=== PATIENT | male | born 1945 | race Caucasian/White ===

== ENCOUNTER → 2017-08-07 | Outpatient (CLI) | payer OTHER ==
--- NOTE | 2017-08-07 10:50 | DIAGNOSTIC IMAGING REPORT ---
CHEST 2 VIEWS ROUTINE CLINICAL HISTORY: Pacemaker. Pre-MRI evaluation COMPARISON STUDY: No previous studies for comparison. FINDINGS: There is a dual-chamber left subclavian central venous pacemaker. No abandoned leads are visualized. The heart is normal in size. There is no failure. There is no focal pulmonary consolidation. There are no pleural effusions.[ IMPRESSION: No active disease in the chest. Electronically signed by: Costa Kelley M.D. 08/07/2017 10:48 AM Dictated Date/Time: 08/07/2017 10:48 AM
--- NOTE | 2017-08-07 12:42 | DIAGNOSTIC IMAGING REPORT ---
LEFT SHOULDER MRI HISTORY: Left shoulder pain. TECHNIQUE: Multiplanar multisequence MRI of the left shoulder was performed without contrast. COMPARISON STUDY: None. FINDINGS: AC joint: Moderate AC joint arthrosis demonstrated by cartilage space narrowing and marginal osteophytes. Small amount of fluid at the AC joint. Rotator cuff: Complete full-thickness tear of the mid to distal supraspinatus tendon which demonstrates up to 13 mm of retraction. There is also complete full-thickness tear and retraction of the anterior fibers of the infraspinatus tendon. There is high-grade partial tear of the distal subscapularis tendon and near complete full-thickness tear of the teres minor tendons. Labrum: The labrum is diffusely abnormal consistent with a diffuse tear/maceration. Biceps tendon: High-grade split tear of the proximal long head of the biceps tendon. Bones: No fracture or dislocation. Marginal osteophytes at the glenohumeral joint. There is narrowing of the subacromial space due to the superior subluxation of the humeral head from the rotator cuff injury. Cartilage: Near full-thickness cartilage loss at the superior aspect of the glenohumeral joint. There is also 50% cartilage space narrowing at the superior aspect of the humeral head. Miscellaneous: Scattered metallic artifact within the shoulder consistent with old postoperative changes. Small to moderate joint effusion most pronounced within the subcoracoid bursa. Near complete fatty atrophy of the teres minor and infraspinatus muscles. There is mild to moderate fatty atrophy of the supraspinatus muscle. IMPRESSION: 1. Extensive rotator cuff injury/tear as described above . 2. Diffuse labral tear/maceration. 3. High-grade split tear of the proximal long head of the biceps tendon. 4. Wpfwh-nn-qlrnzktj joint effusion most pronounced within the subcoracoid bursa. 5. Degenerative changes as described above. Electronically signed by: Jesse Ba M.D. 08/07/2017 12:40 PM Dictated Date/Time: 08/07/2017 12:27 PM
== END | disposition home or self-care (01) ==
LOC: C.MRI 10:22
PROVIDERS: ATTEND Orthopaedic Surgery Sports Medicine
DX: M75.102 Unspecified rotator cuff tear or rupture of left shoulder, not specified as traumatic (principal); S43.432A Superior glenoid labrum lesion of left shoulder, initial encounter; X58.XXXA Exposure to other specified factors, initial encounter; M19.012 Primary osteoarthritis, left shoulder

== ENCOUNTER → 2017-08-29 | Day surgery (SDC) | payer OTHER ==
[2017-08-20 08:26] VITALS: BMI 26.0
[2017-08-21 11:32] VITALS: BMI 27.0
--- NOTE | 2017-08-21 12:17 | PAT Medication Instructions ---
Service Date Aug 21, 2017. Current Home Medication List Celecoxib (CeleBREX), 200 MG PO QAM Diphenhydramine Hcl (Benadryl Allergy), 1 CAP PO HS Fish Oil ([place]-3), 2 CAP PO QDD Rngcpyrsbnq-Tmgkmqyenyd-Xgc C- (Glucosamine Chondroitin), 2-3 TAB PO BID Lisinopril (Zestril), 40 MG PO HS Melatonin (Melatonin Maximum Strengt), Unknown Dose PO HS Metoprolol Succ (Toprol Xl) (Toprol-Xl), 50 MG PO HS Omeprazole (Prilosec), 40 MG PO QAM Ropinirole (Requip), Unknown Dose PO HS Tadalafil (Cialis), 5-10 MG PO UD Tamsulosin HCl (Tamsulosin HCl), 0.4 MG PO QAM Vitamin E (Alph-E), 400 UNITS PO QAM [Turmeric], 1 TAB PO QAM Medication Instructions For Your Scheduled Surgery - Hold the following medications starting tomorrow (08/22): [Turmeric], 1 TAB PO QAM Vitamin E (Alph-E), 400 UNITS PO QAM Fish Oil ([place]-3), 2 CAP PO QDD Dkczkstxmqz-Uhgvqokohep-Rsp C- (Glucosamine Chondroitin), 2-3 TAB PO BID - Contact your surgeon for instructions: Celecoxib (CeleBREX), 200 MG PO QAM - Hold the following medications the night before surgery: Ropinirole (Requip), Unknown Dose PO HS Lisinopril (Zestril), 40 MG PO HS - Hold the following medication the morning of the surgery: Tadalafil (Cialis), 5-10 MG PO UD Take the following medications the morning of surgery with a sip of water: Tamsulosin HCl (Tamsulosin HCl), 0.4 MG PO QAM Omeprazole (Prilosec), 40 MG PO QAM - Take the following medications as scheduled the night before surgery: Diphenhydramine Hcl (Benadryl Allergy), 1 CAP PO HS Melatonin (Melatonin Maximum Strengt), Unknown Dose PO HS Metoprolol Succ (Toprol Xl) (Toprol-Xl), 50 MG PO HS If you have any questions please call us at [phone] or [phone] or [phone]
[2017-08-21 12:55] LABS: PARTIAL THROMBOPLASTIN RATIO 1.1; PROTHROMBIN TIME (PATIENT) 10.2 SECONDS (9.0-12.0)
[2017-08-21 12:56] LABS: BASO % 0.6 %; BASO ABS # 0.04 K/uL (0-0.2); COMPLETE YES; EOS % 1.7 %; HEMATOCRIT 43.3 % (42-52); IG% 1.2 %; LYMPH % 33.9 %; LYMPH ABS # 2.18 K/uL (1.2-3.4); MEAN CELL VOLUME 94.1 fL (80-100); MEAN CORPUSCULAR HGB CONC 33.9 g/dl (32-36); MEAN PLATELET VOLUME 9.9 fL (7.4-10.4); MONO % 8.6 %; PLATELET COUNT 213 K/uL (130-400); WHITE BLOOD COUNT 6.43 K/uL (4.8-10.8)
[2017-08-21 12:57] LABS: URINE APPEARANCE CLEAR (CLEAR); URINE BILIRUBIN NEG (NEG); URINE COLOR YELLOW; URINE NITRITE NEG (NEG); URINE PH 5.5 (4.5-7.5); URINE SPECIFIC GRAVITY 1.014 (1.000-1.030); UROBILINOGEN NEG (NEG)
[2017-08-21 13:04] LABS: MANUAL MICROSCOPIC REQUIRED? NO; REVIEW REQ? NO
[2017-08-21 13:09] LABS: BUN/CREATININE RATIO 15.5 (10-20); CALCIUM 8.5 mg/dl (8.5-10.1); CREATININE 0.93 mg/dl (0.60-1.40)
--- NOTE | 2017-08-28 19:44 | HISTORY & PHYSICAL EXAMINATION ---
DATE OF ADMISSION: 08/29/2017 CHIEF COMPLAINT: Chronic left shoulder pain. HISTORY OF PRESENT ILLNESS: This is a 72-year-old male patient of Dr. Rivas, complaining of chronic left shoulder pain, longstanding and now progressively getting worse. He has had no significant injury or trauma to his shoulder. He had an MRI that revealed a rotator cuff tear, impingement and acromioclavicular arthritis. The patient wished to proceed with a left shoulder arthroscopic subacromial decompression, distal clavicle excision, rotator cuff repair and bursectomy. PAST MEDICAL HISTORY: Pacemaker, acid reflux and Haq's esophagitis. SOCIAL HISTORY: Nonsmoker. Occasional drinker. PAST SURGICAL HISTORY: Hernia repair and shoulder surgery. FAMILY HISTORY: Noncontributory. REVIEW OF SYSTEMS: The patient complains of left shoulder pain and decreased function. Otherwise, he denies any shortness of breath, chest pain, nausea, vomiting or any other joint complaints. MEDICATIONS: Include; Celebrex 200 mg daily, Benadryl as needed, fish oil daily, Glucosamine chondroitin daily, lisinopril 400 mg daily, melatonin daily, omeprazole 40 mg daily, metoprolol 50 mg at bedtime, Requip unknown dose at bedtime, Cialis 5-10 mg as needed, tamsulosin 0.4 mg q.a.m. and vitamin E daily. ALLERGIES: No known drug allergies. PHYSICAL EXAMINATION: GENERAL: A well-developed and well-nourished 72-year-old male, in no acute distress. He is alert, oriented x3 and pleasant. HEENT: Normocephalic and atraumatic. Extraocular motions are intact. Pupils are equal and reactive to light. HEART: Regular rate and rhythm, no murmurs are appreciated. LUNGS: Clear. ABDOMEN: Soft and nontender, bowel sounds are present. EXTREMITIES: Left shoulder reveals decreased internal and external rotation with pain and crepitation. He has active range of motion to 90 degrees, passively to 160. NEUROLOGIC: Neurovascularly he is intact in his left upper extremity. DIAGNOSES: Left shoulder impingement, acromioclavicular arthritis, rotator cuff tear and impingement. He also has a history of pacemaker, acid reflux and Haq's esophagitis. PLAN: The patient was advised of his diagnoses. Indications, risks, benefits and postop course have all been reviewed. The patient wishes to proceed with a left shoulder arthroscopic subacromial decompression, distal clavicle excision, rotator cuff repair and bursectomy. Necessary consent forms and preoperative clearances will be obtained.
[~2017-08-29] VITALS: Ht 177.8 cm; Wt 87.1 kg
[~2017-08-29] MED LIST: ATROPINE SULFATE 0.1 MG/ML 5ML SYR IV PRN; CEFAZOLIN 2000MG IV PUSH 10 ML IV SCH; CLB/200 PO; DEXAMETHASONE SOD INJ 4 MG/ML VIAL ONE; DIPH25CA65 PO; EpHEDrine SULFATE INJ 50 MG/ML AMP IV PRN; EpHEDrine SULFATE INJ 50 MG/ML AMP ONE; EpINEphrine HCL INJ 1 MG/ML 5ML SYRINGE ONE; FENTANYL CITRATE INJ 50 MCG/1 ML 2 ML VIAL ONE; FLM4 PO; GLUCTAB7 PO; GLYCOPYRROLATE INJ 0.2 MG/ML VIAL ONE; HYDROmorphone INJ 2 MG/ML SYR/VIAL IV PRN; LACTATED RINGER'S 1000ML 1,000 ML IV SCH; LIDOCAINE HCL 2% 2 ML VIAL (20MG/ML) ONE; LISI40TA PO; MELATAB2 PO; METO50TA7 PO; MIDAZOLAM HCL 1 MG/ML 2ML VIAL ONE; MoRPHine SULFATE 4 MG/ML 1 ML CARP\\VIAL IV PRN; NEOSTIGMINE METHYLSULFATE 5 MG/5 ML SYR ONE; OMEG10007 PO; ONDANSETRON INJ 2 MG/ML 2 ML VIAL IV PRN; ONDANSETRON INJ 2 MG/ML 2 ML VIAL ONE; OXYC1TAB3 PO; OXYCODONE/ACETAMINOPHEN 5-325 TAB PO PRN; PHENYLEPHRINE 100MCG/ML 5ML SYR IV PRN; PHENYLEPHRINE HCL INJ 10 MG/ML VIAL ONE; PRLSR20 PO; PROPOFOL IV EMULSION 10 MG/ML 20 ML VIAL IV ONE; ROCURONIUM BROMIDE 10 MG/ML 5 ML VIAL IV ONE; ROPI5TAB PO; ROPIVACAINE 0.5% 5 MG/ML 30 ML VIAL ONE; SODIUM CHLORIDE 0.9% 1000ML 1,000 ML IV SCH; SUCCINYLCHOLINE CHLORIDE 20 MG/ML 10 ML VIAL IV ONE; TADA10TA PO; TURMERIC PO; VITA400C28 PO
[2017-08-29 10:00] VITALS: BP 132/76; PULSE 81; TEMP 36.5; O2SAT 97; Ht 177.8 cm; Wt 87.1 kg
--- NOTE | 2017-08-29 12:40 | History & Physical Bridge Note ---
H&P Re-Evaluation Bridge Note: I have examined the patient, reviewed the History & Physical and in the interval since the performance of the History & Physical I have noted the following changes of clinical significance: No changes noted
--- NOTE | 2017-08-29 16:17 | [facility] Post Operative Brief Note ---
Immediate Operative Summary Operative Date Aug 29, 2017. Pre-Operative Diagnosis Left shoulder impingement, acromioclavicular arthritis, rotator cuff tear and impingement,biceps rupture,chronic bursitis Post-Operative Diagnosis same Procedure(s) Performed Left Shoulder Arthroscopy, Subacromial Decompression, Distal Clavicle Excision, Rotator Cuff Repair, Extensive Debridement Surgeon Dr Ulloa Sap Data Architect Surgeon(s) Jessy Mejia PA-C Estimated Blood Loss 30 ml Findings as above Specimens none per surgeon Anesthesia general and regional Complication(s) None Disposition Recovery Room / PACU
--- NOTE | 2017-08-29 16:21 | Discharge Instructions ---
Discharge Instructions Date of Service Aug 29, 2017. Visit Reason for Visit: Left Shoulder Osteoarthritis Discharge Discharge Diagnosis / Problem: sp left shoulder arthroscopy with rotator cuff repair Discharge Goals Goal(s): Decrease discomfort, Improve function, Increase independence Activity Recommendations Activity Limitations: per Instructions/Follow-up section Anesthesia . Post Anesthesia Instructions: If you have had General Anesthesia or IV Sedation: * Do not drive today. * Resume driving when surgeon permits. * Do not make important decisions or sign legal documents today. * Call surgeon for: 1. Temperature elevations greater than 101 degrees F. 2. Uncontrollable pain. 3. Excessive bleeding. 4. Persistent nausea and vomiting. 5. Medication intolerance (nausea, vomiting or rash). * For nausea and vomiting use only clear liquids such as: tea, soda, bouillon until nausea subsides, then gradually increase diet as tolerated. * If you have any concerns or questions, call your surgeon's office. If physician is unavailable and it is an emergency, call 911 or go to the nearest emergency room. . Instructions / Follow-Up Instructions / Follow-Up U DISCHARGE INSTRUCTIONS: ROTATOR CUFF REPAIR SELF CARE INSTRUCTIONS A. You are permitted to loosen your sling/immobilizer to move your elbow, wrist , and hand to prevent stiffness. You should use your well arm (good arm) to assist the operated extremity when trying to raise the arm away from the body, hygiene purposes. Do NOT actively try to use/engage your shoulder muscles in operative arm at this time. You should NOT do overhead activity, lifting, or attempt to reach behind your back. B. You may/may not be instructed to start Physical Therapy upon discharge depending upon the size and difficulty of the repair. You will be provided a prescription for therapy with specific restrictions, if needed, at time of discharge. C. At 48 hours post-operatively, you may change your dressing. (Leave white steri-strips intact if present). Use band-aids and change daily. You are allowed to shower at this time and get the incision area wet, but DO NOT soak or submerge incision area in water. (No baths, swimming pools, hot tubs) D. Do NOT apply soap or any ointment/lotions directly over incision. E. You may use ice as needed to operative shoulder SPECIAL CARE INSTRUCTIONS: VERY IMPORTANT TO READ AND REVIEW A. There are a few signs you need to watch for after you are home. Call [facility] at [phone] if you experience any of the following: a. Increased severe shoulder pain. Some pain is expected especially when you exercise b. Increased swelling in your shoulder or arm; pain or swelling in either upper extremity. (Note: swelling and stiffness is normal and expected for several weeks post op, depending on type of shoulder surgery you had). c. Any fluid or drainage from the incision; redness of the incision. d. Shortness of breath or chest pain. B. Please call [facility] at [phone] if you have any questions or concerns about your operation or recovery. C. Call your physician if: a. Temperature is greater than 101 degrees (F). b. Pain is not relieved by prescribed pain medications. c. Increase drainage or redness from incision. d. Unanswered questions or concerns. D. Pain Medication: a. You will be prescribed pain medication upon discharge that should last till your first post-operative appointment. b. If you experience nausea and/or skin rash, discontinue this medication and contact our office for an alternative medication. c. Caution- narcotic pain medication can cause constipation. FOLLOW UP VISIT: Please call [facility] at [phone] to schedule a follow up appointment 10-14 days from your surgery date. Diet Recommendations Recommended Home Diet: resume previous diet Procedures Procedures Performed: Left Shoulder Arthroscopy, Subacromial Decompression, Distal Clavicle Excision, Rotator Cuff Repair, Extensive Debridement Pending Studies Studies pending at discharge: no Medical Emergencies . Who to Call and When: Medical Emergencies: If at any time you feel your situation is an emergency, please call 911 immediately. . Non-Emergent Contact Non-Emergency issues call your: Surgeon . . "Provider Documentation" section prepared by Latisha Mejia. .
--- NOTE | 2017-08-29 16:41 | Anesthesiology Progress Note ---
Anesthesia Post Op Note Date & Time Aug 29, 2017 at 16:41 Vital Signs Pain Intensity: 0 Vital Signs Past 12 Hours Date Time Temp Pulse Resp B/P (MAP) Pulse Ox O2 Delivery O2 Flow Rate FiO2 08/29/17 16:35 63 17 98/57 96 Room Air 08/29/17 16:25 67 20 95/66 96 Oxymask 08/29/17 16:16 36.0 72 13 106/56 95 Oxymask 08/29/17 10:00 36.5 81 20 132/76 (94) 97 Room Air Notes Mental Status: alert / awake / arousable, participated in evaluation Pt Amnestic to Procedure: Yes Nausea / Vomiting: adequately controlled Pain: adequately controlled Airway Patency, RR, SpO2: stable & adequate BP & HR: stable & adequate Hydration State: stable & adequate Anesthetic Complications: no major complications apparent
[2017-08-29 17:05] VITALS: BP 114/64; PULSE 63; TEMP 36.5; O2SAT 93
--- NOTE | 2017-08-29 17:20 | OPERATIVE REPORT ---
DATE OF OPERATION: 08/29/2017 INDICATION FOR PROCEDURE: The patient is a 72-year-old male with chronic left shoulder pain. He has pain and weakness. He did have previous arthroscopic surgery on that shoulder years ago. He said he was always weak since he had the arthroscopic surgery with external rotation. He was in his usual state of health until this summer when he was playing golf and had an accident and had increasing pain and weakness in his shoulder. He was subsequently worked up with x-rays and MRI demonstrating he has hypertrophic AC joint, some recurrent inferior AC joint acromial spurs, and he had some proximal migration of the humerus with some decrease acromiohumeral interval, not bone on bone with a moderately retracted rotator cuff tear about 50% toward the glenoid with some atrophy of the muscle, some fat atrophy, more fat atrophy posterior. The head looks to be a repairable tear despite having some atrophy and fat replacement. PREOPERATIVE DIAGNOSIS: Chronic rotator cuff tear, impingement syndrome, acromioclavicular joint arthritis, long head biceps rupture and history of previous arthroscopic surgery. POSTOPERATIVE DIAGNOSIS: Same with some rotator cuff arthropathy with moderate degenerative arthritis glenohumeral joint. Grade 4 DJD AC joint, bone on bone with reparable rotator cuff with chronic rotator cuff tendinopathy. PROCEDURE: Arthroscopy left shoulder with arthroscopic rotator cuff repair, subacromial decompression, distal clavicle excision, and extensive debridement. SURGEON: Dr. Ulloa. DOG OBEDIENCE INSTRUCTOR: EVELIN Guzman. ANESTHESIA: Regional block and general. OPERATIVE PROCEDURE: The patient had regional block placed by anesthesia in the holding area and transferred to the operating room and placed under general anesthetic. He was placed in a 70 degree beach chair position over [facility] shoulder table. I did have a magnet placed over his pacemaker, which was on the ipsilateral side. We did tape this and placed a sterile drape around it. It was close to but not involving our operative field. We used the ChloraPrep to drape the shoulder and then sterilely prepped and draped in usual fashion with our shoulder draped system. His left shoulder exam under anesthesia demonstrated good passive range of motion with subacromial crepitation and hypertrophic AC joint. Arthroscopy was started with posterior arthroscopy portal in the soft spot and we made anterior portal in the rotator interval, a lateral portal in the subacromial space, and a superior and posterior superior lateral small incisions for suture anchor placement. The following findings were noted. In the glenohumeral joint, he had 2 areas of grade 4 wear on the glenoid. There may be 4-5 mm size. He had some grade 3 wear in general on the glenoid and grade 3 wear on the humeral head with a couple areas with thinning was to the point where it could be grade 4. This was all consistent with rotator cuff arthropathy and DJD. He had circumferential fraying of the labrum and the biceps tendon could be seeing exiting into the bicipital groove and there was some fraying in the bicipital groove. I did withdraw the biceps into the joint and there was clearly complete rupture with mop ends fraying of the end of the biceps tendon which was an extraarticular rupture. The subscapularis tendon was intact. The supraspinatus tendon had a complete tear back to the anterior infraspinatus. There was little bit tendinopathy and delamination of the infraspinatus and partial undersurface tearing, but the infraspinatus tendon and teres minor were still intact. The subacromial space was chronic thickened subacromial bursitis. There was undulating undersurface of the acromion consistent with given prior subacromial surgery. There was recurrence spurs on the undersurface of the acromion causing impingement and a grade 4 AC joint osteoarthritis. The rotator cuff had tendinopathic fraying appearance on the bursal surface. The tear itself appeared to be repairable. Attention was first taken to smoothing out the areas of grade 2 wear on the humeral head and the glenoid, debriding the labrum circumferentially using a 5.5 incisor blade to resect the biceps tendon back to the superior labrum. I did a rotator interval and capsular release under the supraspinatus with the radiofrequency ablator. Then I shaved the undersurface of the frayed rotator cuff tissue moving the degenerative tissue back to better but still tendinopathic tissue. The undersurface of the partial tear of the supraspinatus was debrided. Attention was then taken to the subacromial space and we did a thorough subacromial bursectomy removing all the thick bursal bands around the infraspinatus posteriorly and debriding the lateral and anterior subacromial bursa to fully visualize the rotator cuff tear pattern. I ablated the undersurface of the acromion and ablated the inferior AC joint capsule to expose 1 cm of distal clavicle. The edge of the rotator cuff was debrided. The footprint of the supraspinatus and anterior infraspinatus was debrided down to bone starting intraarticular margin and extending out the lateral greater tuberosity. The bursal surface of the rotator cuff was debrided to gently smooth out the tendinopathic tissue. A 5.5 bur was used to plane down the acromion to a type 1 flat shape removing all the spurs. The undersurface of the distal clavicle was resected. The rotator cuff was then repaired with dual row fixation. The medial row fixation was with Healicoil anchors loaded with tapes Ultrabraid suture. Ultrabraids were tied in horizontal mattress fashion and passing sutures with a scorpion suture passer. The tapes were left untied and passed with a scorpion suture passer. We were able to get full anatomic repair. The lateral row fixation, anterior and posteriorly was with 5.5 mm footprint anchors. I did a crisscross pattern of compression placing ____ and 2 Ultrabraid sutures into each anchor respectively. Anatomic repair was obtained. There was pain to the side and there was no tension on the repair. They were taken through range of motion and there was no impingement. After removing some further bursa tissue, then we went ahead and placed a 70-degree arthroscope to the lateral portal and the 5.5 lulu to the anterior portal and removed the remainder upper clavicles were a complete resection of the distal clavicle 1 cm removed, preserving as much of the superior and posterior capsules possible to help with stability. The portal sites were then closed with nylon sutures. Sterile dressings were applied and abduction pillow sling immobilizer. EVELIN Guzman was my delivery driver assistant. She was present during the entire procedure. She assisted with arm positioning, instrument management, suture management and she performed the skin closure, dressings and a pillow sling application and will participate in some of the postoperative care of the patient. I attest to the content of the Intraoperative Record and any orders documented therein. Any exception s are noted below.
[2017-08-29 17:35] VITALS: BP 117/64; PULSE 60; O2SAT 92
[2017-08-29 18:05] VITALS: BP 118/69; PULSE 68; TEMP 36.4; O2SAT 95
== END | disposition home or self-care (01) ==
LOC: C.ACU 09:42
PROVIDERS: ATTEND Orthopaedic Surgery Sports Medicine
DX: M75.102 Unspecified rotator cuff tear or rupture of left shoulder, not specified as traumatic (principal); M75.42 Impingement syndrome of left shoulder; M19.012 Primary osteoarthritis, left shoulder; K21.9 Gastro-esophageal reflux disease without esophagitis; Z95.0 Presence of cardiac pacemaker; Z79.899 Other long term (current) drug therapy